=== PATIENT | male | born 2000 | race Hispanic/Latino ===

== ENCOUNTER 2023-04-02 10:40 | Emergency (ER) | payer OTHER ==
[~2023-04-02] VITALS: Ht 180.3 cm; Wt 85.6 kg
[2023-04-02 10:42] VITALS: BP 146/73
[2023-04-02] MEDS ORDERED: NAPR-849 PO (10:58)
== END 2023-04-02 12:32 | disposition home or self-care (01) ==
LOC: M ED 10:40
DX: S92.102A Unspecified fracture of left talus, initial encounter for closed fracture (principal); X50.3XXA Overexertion from repetitive movements, initial encounter; Y92.89 Other specified places as the place of occurrence of the external cause; Y93.02 Activity, running; Y99.1 Military activity